=== PATIENT | female | born 1945 | race Caucasian/White ===

== ENCOUNTER → 2016-10-08 | Outpatient (CLI) | payer OTHER | LOC: RAD 01:11 | DX: Z12.31 Encounter for screening mammogram for malignant neoplasm of breast (principal) ==

== ENCOUNTER → 2019-05-19 | Outpatient (CLI) | payer OTHER | LOC: RAD 10:35 | DX: Z12.31 Encounter for screening mammogram for malignant neoplasm of breast (principal) ==

== ENCOUNTER → 2019-11-14 | Outpatient (CLI) | payer OTHER | LOC: SJCVC 10:10 | DX: R07.9 Chest pain, unspecified (principal); I10 Essential (primary) hypertension; E78.5 Hyperlipidemia, unspecified; M15.3 Secondary multiple arthritis; Z79.82 Long term (current) use of aspirin; Z79.899 Other long term (current) drug therapy ==

== ENCOUNTER → 2021-10-25 | Outpatient (CLI) | payer OTHER, BC | LOC: BC 10-03 09:22 | PROVIDERS: ATTEND Family Medicine | DX: Z12.31 Encounter for screening mammogram for malignant neoplasm of breast (principal) ==

== ENCOUNTER → 2021-11-13 | Outpatient (CLI) | payer OTHER, BC | LOC: SJCVC 09:25 | PROVIDERS: ATTEND Internal Medicine | DX: R94.31 Abnormal electrocardiogram [ECG] [EKG] (principal); I45.2 Bifascicular block; I10 Essential (primary) hypertension; E78.5 Hyperlipidemia, unspecified; F41.9 Anxiety disorder, unspecified; R20.0 Anesthesia of skin; Z79.82 Long term (current) use of aspirin; Z79.899 Other long term (current) drug therapy ==